=== PATIENT | female | born 1960 | race Two or more races ===

== ENCOUNTER 2018-10-11 22:54 | Emergency (ER) | payer OTHER ==
[2018-10-11] MEDS ORDERED: NS 0.9% 1000 ML** 1,000 ML IV ONE (23:03)
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
[2018-10-11] MEDS ORDERED: Succinylcholine* 20 MG/ML 10 ML VIAL ONE (23:05)
[2018-10-11] MEDS ORDERED: Etomidate* 2 MG/ML 20 ML VIAL (40 MG) ONE (23:05)
[2018-10-11] MEDS ORDERED: Propofol* 100 ML ONE (23:06)
[2018-10-11] MEDS ORDERED: Piperacillin/Tazobac ADVAN(*) 3.375 GM in NS 0.9% 100 ML* 100 ML IVPB ONE (23:10)
[2018-10-11] MEDS ORDERED: Tetan/Diph/Pertus SYR(Tdap)* 0.5 ML SYR(BOOSTRIX) use SYR IM ONE (23:10)
[2018-10-11 23:20] LABS: ABS Basophils 0.1 10^3/ul (0-0.2); ABS Eosinophils 0.3 10^3/ul (0-0.6); ABS Lymphocytes 4.6 10^3/ul (1.0-4.8); ABS Monocytes 0.5 10^3/ul (0-0.8); ABS Neutrophils 3.4 10^3/ul (1.5-7.7); Eosinophil % 3.8 %; Hematocrit 38 % (35-47); Hemoglobin 12.4 g/dL (12.0-16.0); Lymphocyte % 51.4 %; Mean Corpuscular HGB Conc 33 g/dL (31-36); Mean Corpuscular Hemoglobin 32 pg (27-31); Mean Corpuscular Volume 97 fL (80-97); Mean Platelet Volume 7.8 fL (7.4-10.4); Nucleated Red Blood Cells % 0.1; Platelet Count 295 10^3/uL (150-450); Red Blood Count 3.92 10^6 /uL (3.70-4.87); Red Cell Distribution Width 14 % (10-15)
[2018-10-11 23:24] LABS: INR 1.01 (0.82-1.09)
[2018-10-11 23:31] LABS: Alcohol 301 mg/dL (<10)
[2018-10-11 23:33] LABS: ALT 26 U/L (7-52); Albumin 4.2 g/dL (3.2-5.2); Albumin/Globulin Ratio 1.2 (1-3); Alkaline Phosphatase 102 U/L (34-104); Amylase 36 U/L (29-103); BUN/Creatinine Ratio 6.1 (8-20); Blood Urea Nitrogen 9 mg/dL (6-24); CO2 Carbon Dioxide 19 mmol/L (22-32); Calcium 8.8 mg/dL (8.6-10.3); Chloride 109 mmol/L (101-111); Creatine Kinase 695 U/L (10-223); EGFR African American 43.9 (>60); EGFR Non-African American 36.3 (>60); Globulin 3.5 g/dL (2-4); Glucose 149 mg/dL (70-100); Sodium 140 mmol/L (135-145); Total Protein 7.7 g/dL (6.4-8.9)
[2018-10-11] MEDS ORDERED: Iodixanol* (CONTRAST) 320 MG/ML 100 ML SDV IV ONE (23:40)
[2018-10-11] MEDS ORDERED: Propofol* 100 ML IV SCH (23:45)
[2018-10-12] LABS: Anion Gap 12 mmol/L (2-11)
[2018-10-12 00:36] LABS: Potassium Redraw 3.6 mmol/L (3.5-5.0)
[2018-10-12] MEDS ORDERED: NS 0.9% 1000 ML** 1,000 ML IV ONE (00:57)
[2018-10-12] MEDS ORDERED: Metoclopramide IV* 5 MG/ML 2 ML VIAL IV SLOW PU ONE (01:15)
[2018-10-12 02:31] LABS: Urine Appearance Cloudy; Urine Bacteria Absent (Absent); Urine Bilirubin Negative (Negative); Urine Blood 3+ (Negative); Urine Glucose 1+(50 mg/dL) (Negative); Urine Ketones Negative (Negative); Urine Nitrite Negative (Negative); Urine Protein 2+(100 mg/dL) (Negative); Urine Red Blood Cell 3+(>10/hpf) (Absent); Urine Specific Gravity 1.023 (1.010-1.030); Urine Squamous Epithelial Cell Present (Absent); Urine Urobilinogen Negative (Negative); Urine White Blood Cell 3+(>20/hpf) (Absent)
[2018-10-12 02:35] LABS: Urine Color Red
[2018-10-12 02:44] LABS: Urine Benzodiazepine Screen None Detected (None Detect); Urine Opiates Screen None Detected (None Detect)
[2018-10-12] MEDS ORDERED: Midazolam IV for DRIP* 100 MG in NS 0.9% 100 ML* 80 ML IV SCH (03:00)
[2018-10-12] MEDS ORDERED: fentaNYL INFUSION 50 MCG/ML* 2,500 MCG/50 ML BAG IV SCH (03:00)
[2018-10-12 03:02] VITALS: BP 127/66
== END 2018-10-12 03:02 | disposition short-term general hospital (02) ==
LOC: EDBD → ED 22:54
DX: S01.01XA Laceration without foreign body of scalp, initial encounter (principal); S81.811A Laceration without foreign body, right lower leg, initial encounter; S09.90XA Unspecified injury of head, initial encounter; Z23 Encounter for immunization; F10.929 Alcohol use, unspecified with intoxication, unspecified; V49.88XA Car occupant (driver) (passenger) injured in other specified transport accidents, initial encounter
CPT/HCPCS: 12002; 31500; 36415; 70450; 71045; 71260; 72125; 74177; 80053; 80307; 80320; 81003; 81015; 82150; 82550; 82803; 83605; 83690; 84484; 85025; 85610; 87086; 90471; 90715; 93005; 96361; 96365; 96375; 99285; G0480; J0330; J2250; J2543; J2704; J2765; J3010; Q9967